=== PATIENT | female | born 2000 | race Caucasian/White ===

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

== ENCOUNTER → 2018-11-22 | Outpatient (CLI) | payer OTHER ==
[2018-11-22 20:07] LABS: BACTERIA (WET MOUNT) 3+ BACTERIA SEEN; EPITHELIALS (WET MOUNT) 3+ EPITHELIALS SEEN; RBCS (WET MOUNT) NO RBCS SEEN; T.VAGINALIS (WET MOUNT) NO TRICHOMONAS SEEN; WBCS (WET MOUNT) 2+ WBCS SEEN; YEAST (WET MOUNT) NO YEAST SEEN
[2018-11-22 22:03] LABS: CHLAM PCR NOT DETECTED (NOT DETECT); GON PCR NOT DETECTED (NOT DETECT)
== END ==
LOC: LAB 19:51
PROVIDERS: ATTEND Pediatrics
DX: N89.8 Other specified noninflammatory disorders of vagina (principal); R30.0 Dysuria
CPT/HCPCS: 87086; 87210; 87250; 87491; 87591

== ENCOUNTER 2018-12-09 00:44 | Emergency (ER) | payer OTHER ==
[2018-12-09 00:53] VITALS: BP 125/79
[2018-12-09] MEDS ORDERED: HYDROXYZINE HCL 10 MG TABLET PO ONE (01:14)
[2018-12-09] MEDS ORDERED: PREDNISONE 20 MG TABLET PO ONE (01:17)
[2018-12-09] MEDS ORDERED: FAMOTIDINE 20 MG TABLET PO ONE (01:17)
--- NOTE | 2018-12-09 01:23 | ER Document Report ---
ED General - General Chief Complaint: Allergic Reaction Stated Complaint: POSSIBLE ALLERGIC REACTION Time Seen by Provider: 12/09/18 01:09 Mode of Arrival: Ambulatory Information source: Patient TRAVEL OUTSIDE OF THE [place] IN LAST 30 DAYS: No - HPI Patient complains to provider of: itchy rash Onset: Just prior to arrival Onset/Duration: Sudden Quality of pain: Burning Severity: Moderate Pain Level: 3 Associated symptoms: None Exacerbated by: Denies Similar symptoms previously: No Recently seen / treated by doctor: No Notes: 17-year-old female coming in today with complaint itchy diffuse rash that came on just prior to coming in. Denies shortness of breath. Denies difficulty swallowing. - Related Data Allergies/Adverse Reactions: Penicillins Allergy (Verified 12/09/18 00:45) Past Medical History - General Information source: Patient - Social History Smoking Status: Unknown if Ever Smoked Family History: Reviewed & Not Pertinent Patient has suicidal ideation: No Patient has homicidal ideation: No Renal/ Medical History: Denies: Hx Peritoneal Dialysis - Immunizations Immunizations up to date: Yes Review of Systems - Review of Systems Notes: Constitutional: No fevers. No chills. EENT: No eye redness. No eye pain. No ear pain. No sore throat. Cardiovascular: No chest pain. No palpitations. Respiratory: No cough. No shortness of breath. No respiratory distress. Gastrointestinal: No abdominal pain. No nausea, vomiting, or diarrhea. Genitourinary: Atraumatic. No lesions. No pain. No discharge. Musculoskeletal: Atraumatic. No swelling. No deformities. Skin: Positive for rash, positive for pruritus Lymphatic: No swollen lymph nodes. Neurologic: No headache. No syncope. Psychiatric: No suicidal or homicidal ideation. Physical Exam - Vital signs Vitals: Temp Pulse Resp BP Pulse Ox 98.1 F 82 16 125/79 98 12/09/18 00:52 12/09/18 00:52 12/09/18 00:52 12/09/18 00:52 12/09/18 00:52 - Notes Notes: General: Well-developed, well-nourished. In no acute distress. Non-toxic appearing. Cardiac: Well-perfused. Regular rate and rhythm. No murmurs, rubs, or gallops. Pulmonary: No respiratory distress. No cyanosis. Bilateral lung fiels are clear to auscultation. Abdominal: Non-distended. Non-rigid. Bowels sounds are present in all four quadrants. No guarding or rebound. HEENT: Head is atraumatic. Conjunctivae not reddened. No tearing. PERRL. EOMI. Orbits atraumatic. No periorbital swelling or erythema. Oropharynx is without erythema, swelling, or exudates. Neck: Supple. No adenopathy. No meningismus. Dermatologic: Urticarial rash seen on arms legs and flanks. Chest: Atraumatic. No chest wall tenderness to palpation. Musculoskeletal: Moves all extremities well. No range of motion deficits. no muscular or joint tenderness. No paraspinal muscle tenderness. no midline spinal tenderness or step-off. Genitourinary: Examination deferred Neurologic: No gross neurologic deficits. Psychiatric: Normal mood. Course - Re-evaluation Re-evalutation: 12/09/18 01:23 We will treat with a cocktail of hydroxyzine, Pepcid, and prednisone all given orally - Vital Signs Vital signs: Temp Pulse Resp BP Pulse Ox 98.1 F 82 16 125/79 98 12/09/18 00:52 12/09/18 00:52 12/09/18 00:52 12/09/18 00:52 12/09/18 00:52 Discharge - Discharge Clinical Impression: Acute urticaria Condition: Good Disposition: HOME, SELF-CARE Instructions: Itching, Nonspecific ([facility]) Additional Instructions: Be sure to take all the medication that was prescribed to you and do not leave out any doses. If you have any difficulty swallowing or breathing please return to the emergency department immediately. Prescriptions: Famotidine [Pepcid 20 mg Tablet] 20 mg PO BID #10 tablet Hydroxyzine HCl [Atarax 25 mg Tablet] 1 tab PO QID #20 tablet Prednisone [Deltasone 20 mg Tablet] 2 tab PO DAILY 5 Days #10 tablet Referrals: [facility] [Provider Group] - Follow up as needed
== END 2018-12-09 01:32 | disposition home or self-care (01) ==
LOC: ER 00:44
DX: L50.9 Urticaria, unspecified (principal); Z88.0 Allergy status to penicillin
CPT/HCPCS: 99283; J7512

== ENCOUNTER 2020-08-30 12:14 | Outpatient (CLI) | payer OTHER ==
[2020-08-30 13:39] LABS: APPEARANCE,URINE SLIGHTLY-CLOUDY; BILIRUBIN,URINE NEGATIVE (NEGATIVE); GLUCOSE, URINE NEGATIVE (NEGATIVE); KETONES,URINE NEGATIVE (NEGATIVE); URINE SPECIFIC GRAVITY 1.013
[2020-08-30 13:40] LABS: ADD MANUAL MICROSCOPIC YES; COLOR,URINE LIGHT YELLOW; LEUKOCYTE ESTERASE,URINE TRACE (NEGATIVE); NITRITE,URINE NEGATIVE (NEGATIVE); PROTEIN,URINE NEGATIVE (NEGATIVE); UROBILINOGEN,URINE NEGATIVE mg/dL (<2.0)
[2020-08-30 13:41] LABS: RBC,URINE NONE SEEN /HPF
[2020-08-30 13:42] LABS: BACTERIA,URINE 4+ /HPF
[2020-08-30 13:46] LABS: URINE AMPHETAMINES SCREEN NEGATIVE; URINE BARBITURATES SCREEN NEGATIVE; URINE BENZODIAZEPINES SCREEN NEGATIVE; URINE COCAINE SCREEN NEGATIVE; URINE METHADONE SCREEN NEGATIVE; URINE PHENCYCLIDINE SCREEN NEGATIVE
[2020-08-30 13:55] LABS: URINE MARIJUANA (THC) SCREEN NEGATIVE
== END 2020-08-30 14:05 | disposition home or self-care (01) ==
LOC: LC 12:14
PROVIDERS: ATTEND Obstetrics & Gynecology Gynecology
DX: Z36.89 Encounter for other specified antenatal screening (principal); Z3A.28 28 weeks gestation of pregnancy; Z88.0 Allergy status to penicillin
CPT/HCPCS: 80307; 81001

== ENCOUNTER 2020-09-30 18:53 | Outpatient (CLI) | payer OTHER ==
[2020-09-30 19:33] LABS: AMORPHOUS SEDIMENT,URINE TRACE /HPF; APPEARANCE,URINE CLOUDY; BILIRUBIN,URINE NEGATIVE (NEGATIVE); COLOR,URINE YELLOW; GLUCOSE, URINE NEGATIVE (NEGATIVE); KETONES,URINE NEGATIVE (NEGATIVE); LEUKOCYTE ESTERASE,URINE SMALL (NEGATIVE); NITRITE,URINE NEGATIVE (NEGATIVE); PROTEIN,URINE NEGATIVE (NEGATIVE); URINE SPECIFIC GRAVITY 1.016; UROBILINOGEN,URINE NEGATIVE mg/dL (<2.0)
[2020-09-30] MEDS ORDERED: FLUCONAZOLE 100 MG TABLET PO ONE ×2 (19:56→20:30)
[2020-09-30] MEDS ORDERED: FLUCONAZOLE 100 MG TABLET ONE (19:58)
[2020-09-30 20:08] LABS: URINE AMPHETAMINES SCREEN NEGATIVE; URINE BARBITURATES SCREEN NEGATIVE; URINE BENZODIAZEPINES SCREEN NEGATIVE; URINE COCAINE SCREEN NEGATIVE; URINE MARIJUANA (THC) SCREEN NEGATIVE; URINE METHADONE SCREEN NEGATIVE; URINE PHENCYCLIDINE SCREEN NEGATIVE
--- NOTE | 2020-09-30 20:19 | Non Stress Test Report ---
Non Stress Test Datetime Report Generated by CPN: 09/30/2020 20:18 DEMOGRAPHIC EGA NST: 32.3 INDICATION Indication for Study (NST) Other: brownish discharge VITAL SIGNS RESP - NST: 15 MONITORING Monitor Explained: Monitor Explained; Test Explained; Patient Verbalized Understanding Time on Monitor: 09/30/2020 19:19 Time off Monitor: 09/30/2020 20:02 NST Duration: 43 NST INTERVENTIONS NST Interventions: PO Hydration; Reposition Patient Physician Notified NST: Dr Reese BABY A: [id number] BABY A Movement : Present Contraction Frequency : irreg FHR Baseline : 120 Accelerations : 15X15 Decelerations : None Variability : Moderate 6-25bpm NST Review: Meets Criteria for Reactive NST NST Review and Verified By : Agustina Fofana RN NST Results: Reactive NST REPORT Report Trigger: Send Report
== END 2020-09-30 20:22 | disposition home or self-care (01) ==
LOC: LC 18:53
PROVIDERS: ATTEND Obstetrics & Gynecology
DX: O46.93 Antepartum hemorrhage, unspecified, third trimester (principal); O47.03 False labor before 37 completed weeks of gestation, third trimester; Z3A.32 32 weeks gestation of pregnancy; Z88.0 Allergy status to penicillin
CPT/HCPCS: 59025; 80307; 81001